=== PATIENT | male | born 1980 | race African-American/Black ===

== ENCOUNTER 2016-10-24 14:09 | Emergency (ER) | payer BC | END 2016-10-24 15:00 | disposition home or self-care (01) | LOC: NAV ERS 14:09 | DX: S39.012A Strain of muscle, fascia and tendon of lower back, initial encounter (principal); X58.XXXA Exposure to other specified factors, initial encounter | CPT/HCPCS: 99283 ==

== ENCOUNTER 2020-10-20 08:37 | Emergency (ER) | payer BC, OTHER ==
[2020-10-20 13:37] LABS: SARS-CoV-2 PCR by NAA Not Detected (NotDetected)
== END 2020-10-20 09:15 | disposition home or self-care (01) ==
LOC: NAV ERS 08:37
DX: B34.9 Viral infection, unspecified (principal); Z20.822 Contact with and (suspected) exposure to COVID-19
CPT/HCPCS: 87635; 99284; U0003; U0005

== ENCOUNTER 2021-03-07 12:31 | Emergency (ER) | payer OTHER ==
[2021-03-07] MEDS ORDERED: Acetaminophen 500 MG TAB ONE (12:51)
[2021-03-07] MEDS ORDERED: Ibuprofen 800 MG TAB ONE (12:51)
[2021-03-07] MEDS ORDERED: Dexamethasone 20 MG/5 ML VIAL ONE (13:21)
== END 2021-03-07 13:56 | disposition home or self-care (01) ==
LOC: NAV ERS 12:31
DX: M25.561 Pain in right knee (principal)
CPT/HCPCS: 96372; J1100